=== PATIENT | female | born 1945 | race Hispanic/Latino ===

== ENCOUNTER 2019-05-09 08:30 | Day surgery (SDC) | payer MEDICARE ==
[~2019-05-09 08:30] MED LIST: ceFAZolin/Water 2 GM/20 ML 2 GM/20 ML SYRINGE IV NR
[2019-05-09] MEDS ORDERED: BUPIVACAINE-EPINEPHRINE/PF 0.25%-1:200,000 (30 ML) VIAL INFILTRATI ONE (08:41)
--- NOTE | 2019-05-09 10:50 | Anesthesia Day of Surgery ---
Anesthesia Day of Surgery - Day of Surgery Patient Examined: Yes Patient H&P Reviewed: Yes Patient is NPO: Yes
--- NOTE | 2019-05-09 10:54 | Anesthesia Consultation ---
Anesthesia Consult and Med Hx Date of service: 05/09/19 - Airway Anesthetic Teeth Evaluation: Good ROM Head & Neck: Adequate Mental/Hyoid Distance: Adequate Mallampati Class: Class II Intubation Access Assessment: Good - Pre-Operative Health Status ASA Pre-Surgery Classification: ASA3 Proposed Anesthetic Plan: General - Pulmonary Hx Smoking: Yes (STOPPED 1999) Hx Respiratory Symptoms: Yes (LOPEZ. Can climb a few stairs) SOB: Yes (CHRONIC SOB) COPD: Yes (INHALER PRN) Hx Pneumonia: Yes Hx Sleep Apnea: Yes (DX SLEEP APNEA , NO CPAP USE.) - Cardiovascular System Hx Hypertension: Yes (+Cardiac clearance) Hx Heart Attack/AMI: Yes (SLIGHT HEART ATTACK IN ) - Central Nervous System CVA: Yes (? UNSURE) Hx Back Pain: Yes Hx Psychiatric Problems: No - Endocrine Hx Non-Insulin Dependent Diabetes: Yes - Hematic Hx Anemia: Yes - Other Systems Hx Alcohol Use: No (OCC. WINE) Hx Substance Use: No Hx Cancer: Yes
[2019-05-09] MEDS ORDERED: LACTATED RINGERS 1,000 ML IV SCH (11:00)
[2019-05-09] MEDS ORDERED: ONDANSETRON 4 MG/2 ML INJ IV PRN (11:00)
[2019-05-09] MEDS ORDERED: ROCURONIUM 50 MG/5 ML INJ IV ONE (12:22)
[2019-05-09] MEDS ORDERED: fentaNYL 250 MCG/5 ML INJ ONE (12:22)
[2019-05-09] MEDS ORDERED: PROPOFOL 200 MG/20 ML VIAL IV ONE (12:22)
[2019-05-09] MEDS ORDERED: LIDOCAINE MPF (2%) 20 MG/1 ML VIAL 5 ML ONE (12:22)
[2019-05-09] MEDS ORDERED: ONDANSETRON 4 MG/2 ML INJ ONE (12:23)
[2019-05-09] MEDS ORDERED: NEOSTIGMINE 10MG/10 ML INJ MDV ONE (12:23)
[2019-05-09] MEDS ORDERED: GLYCOPYRROLATE 0.4 MG/2 ML INJ ONE (12:23)
[2019-05-09] MEDS ORDERED: PHENYLEPHRINE/NS 1,000 MCG/10 ML SYRINGE (OR USE) IV ONE (12:23)
[2019-05-09] MEDS ORDERED: dexAMETHasone 20 MG/5 ML VIAL ONE (12:23)
[2019-05-09] MEDS ORDERED: BUPIVACAINE-EPINEPHRINE/PF 0.25%-1:200,000 (30 ML) VIAL IJ ONE (13:19)
[2019-05-09] MEDS: fentaNYL 100 MCG/2 ML INJ IV PRN ×2 (13:55→14:10)
[2019-05-09 15:37] VITALS: BP 138/67
--- NOTE | 2019-05-09 15:47 | Post Anesthesia Evaluation ---
- Post Anesthesia Evaluation Patient Participated: Yes Airway Patent: Yes Stable Respiratory Function: Yes Nausea/Vomiting: No Temp > 96.8F: Yes Pain Manageable: Yes Adequeate Hydration: Yes Anesthesia Complications: No
--- NOTE | 2019-05-09 17:12 | Operative Report ---
PREOPERATIVE DIAGNOSIS: Left knee with degenerative joint disease and chondral lesion with meniscal tears. POSTOPERATIVE DIAGNOSES: 1. Left knee with grade 3 near 4 chondral lesion on retropatellar surface. 2. Grade 3 chondromalacia, trochlear groove. 3. Grade 3 chondromalacia, medial femoral condyle. 4. Radial tear posterior horn medial meniscus. 5. Central fraying, lateral meniscus. 6. Synovitis. PROCEDURE PERFORMED: 1. Left knee arthroscopy with partial medial and lateral meniscectomy. 2. Chondroplasty, medial femoral condyle. 3. Chondroplasty, trochlear groove. 4. Chondroplasty, patella. 5. Synovectomy. SURGEON: Dr. Scot Burt. MARKETING SUMMER INTERN: uMkesh Trivedi CSA. ANESTHESIA: General. ESTIMATED BLOOD LOSS: Minimal. COMPLICATIONS: None. DESCRIPTION OF PROCEDURE: The patient underwent successful induction of anesthesia. Following this, the lower extremity was carefully positioned in leg bingham and prepped and draped in the usual fashion. It was then exsanguinated and the tourniquet inflated. Antibiotics had been pre-administered. Arthroscopy was carried out utilizing standard medial and lateral portals. Systematic exam of the joint was carried out, which demonstrated the findings as noted. Synovitis debrided tricompartmentally. She was noted to have a central fraying in the posterior horn of the medial meniscus with a small radial tear debrided with a full radius resector and a vapor at low power setting in a noncontact chondral sparing mode, allowing preservation of peripheral 80% of meniscus, majority of the body and anterior horn were well preserved. Articular surface demonstrated grade 3 chondral lesion of the medial femoral condyle weightbearing surface. Gentle chondroplasty affected with a full radius resector and a surface again at low power setting in a noncontact chondral sparing mode to achieve an excellent stable rim. The notch demonstrated normal ACL and PCL. Synovectomy again performed. The lateral compartment demonstrated well preserved articular surfaces. Central fraying of the meniscus was gently debrided with a vapor, allowing preservation of peripheral 85% of meniscus in the body and the majority of anterior horn and posterior horn. Thorough examination, irrigation, debridement joint was carried out of both portals. Intraoperative photos were obtained for documentation. No loose bodies were identified. The arthroscopic instrumentation was removed and ports closed with nylon sutures. Sterile dressing was applied. He was taken to recovery in satisfactory condition having tolerated the procedure well. JOB# [id number] RDP/NTS
== END 2019-05-09 15:05 | disposition home or self-care (01) ==
LOC: OR 08:30
PROVIDERS: ATTEND Orthopaedic Surgery
DX: M17.12 Unilateral primary osteoarthritis, left knee (principal); M23.204 Derangement of unspecified medial meniscus due to old tear or injury, left knee; M94.262 Chondromalacia, left knee; M65.862 Other synovitis and tenosynovitis, left lower leg; I11.0 Hypertensive heart disease with heart failure; I50.9 Heart failure, unspecified; E78.00 Pure hypercholesterolemia, unspecified; J44.9 Chronic obstructive pulmonary disease, unspecified; G47.30 Sleep apnea, unspecified; M79.7 Fibromyalgia; G43.909 Migraine, unspecified, not intractable, without status migrainosus; M19.90 Unspecified osteoarthritis, unspecified site; E11.9 Type 2 diabetes mellitus without complications; Z72.89 Other problems related to lifestyle; Z98.890 Other specified postprocedural states; Z80.8 Family history of malignant neoplasm of other organs or systems; Z90.49 Acquired absence of other specified parts of digestive tract; Z90.710 Acquired absence of both cervix and uterus; Z79.899 Other long term (current) drug therapy; Z87.891 Personal history of nicotine dependence; Z98.41 Cataract extraction status, right eye; Z98.42 Cataract extraction status, left eye; Z87.442 Personal history of urinary calculi; Z87.440 Personal history of urinary (tract) infections; Z86.73 Personal history of transient ischemic attack (TIA), and cerebral infarction without residual deficits; Z86.2 Personal history of diseases of the blood and blood-forming organs and certain disorders involving the immune mechanism; Z88.8 Allergy status to other drugs, medicaments and biological substances
CPT/HCPCS: 29876; 29880; 36415; 82962; 84132; J0690; J1100; J2370; J2405; J2704; J2710; J3010; J7120